=== PATIENT | female | born 1975 | race Caucasian/White ===

== ENCOUNTER 2018-09-26 01:12 | Inpatient (IN) | payer MEDICAID ==
[2018-09-26] VITALS (10 sets, daily range): BP systolic 100–117; BP diastolic 60–74
[~2018-09-26] VITALS: Ht 158.8 cm; Wt 114.3 kg
[~2018-09-26 01:12] MED LIST: BUPR300T53 PO; LANS30CA55 PO
[2018-09-26] MEDS ORDERED: ZOLPIDEM TARTRATE 10 MG TABLET PO PRN (03:00)
[2018-09-26] MEDS ORDERED: HALOPERIDOL 5 MG TABLET PO PRN (03:00)
[2018-09-26] MEDS ORDERED: LORazepam 2 MG TABLET PO PRN (03:00)
[2018-09-26] MEDS ORDERED: SERT100T12 PO (07:21)
[2018-09-26] MEDS ORDERED: DIPH25CA85 PO (07:21)
[2018-09-26] MEDS ORDERED: IBUP-2071 PO (07:21)
[2018-09-26] MEDS ORDERED: ALBU8HFA IH (07:21)
[2018-09-26] MEDS ORDERED: ZOLP10TA7 PO (07:21)
[2018-09-26] MEDS ORDERED: LEVO125T4 PO (07:21)
[2018-09-26] MEDS ORDERED: LURA40 PO (07:21)
[2018-09-26] MEDS ORDERED: ALBUTEROL SULFATE HFA 90 MCG/PUFF 8 GM INHALER IH PRN (08:15)
[2018-09-26] MEDS ORDERED: BACITRACIN 28.4 GM OINTMENT TP PRN (08:15)
[2018-09-26] MEDS ORDERED: IBUPROFEN 600 MG TABLET PO PRN (08:15)
[2018-09-26] MEDS ORDERED: MAG HYDROX/AL HYDROX/SIMETH ES 30 ML SUSPENSION UDCUP PO PRN (08:15)
[2018-09-26] MEDS ORDERED: BENZOCAINE/MENTHOL LOZENGE MM PRN (08:15)
[2018-09-26] MEDS ORDERED: CloNIDine HCL 0.1 MG TABLET PO PRN (08:15)
[2018-09-26] MEDS ORDERED: LOPERAMIDE HCL 2 MG CAPSULE PO PRN (08:15)
[2018-09-26] MEDS ORDERED: MAGNESIUM HYDROXIDE SUSPENSION 30 ML UDCUP PO PRN (08:15)
[2018-09-26] MEDS ORDERED: ACETAMINOPHEN 325 MG TABLET PO PRN (08:15)
[2018-09-26] MEDS ORDERED: ONDANSETRON HCL 4 MG TABLET PO PRN (08:15)
[2018-09-26] MEDS ORDERED: PETROLATUM,WHITE 28 GM JELLY TP PRN (08:15)
[2018-09-26] MEDS ORDERED: OMEPRAZOLE 20 MG CAPSULE PO SCH (09:00)
[2018-09-26] MEDS ORDERED: PNEUMOCOCCAL VACCINE POLYVALENT 0.5 ML VIAL [PPSV23] IM ONE (11:00)
[2018-09-26] MEDS: DOCUSATE SODIUM 100 MG CAPSULE PO SCH (12:38)
[2018-09-26] MEDS: RisperiDONE 1 MG TABLET PO SCH (16:17)
[2018-09-27] MEDS: LEVOTHYROXINE SODIUM 125 MCG TABLET PO SCH (06:57)
[2018-09-27 08:19] VITALS: BP 101/60
[2018-09-27 08:20] VITALS: BP 101/60
[2018-09-27 08:36] LABS: EOSINOPHILS % (AUTO) 2.4 % (1.0-6.0); HEMATOCRIT 40.4 % (36-46); HEMOGLOBIN 13.7 g/dL (12.0-16.0); LYMPHOCYTES # (AUTO) 3.2 K/uL (1.0-4.8); MEAN CORPUSCULAR HEMOGLOBIN 31.2 pg (26.0-34.0); MEAN CORPUSCULAR VOLUME 92 fL (80-100); MONOCYTES # (AUTO) 0.8 K/uL (0.1-1.0); MONOCYTES % (AUTO) 10.9 % (2.0-9.0); NEUTROPHILS # (AUTO) 2.8 K/uL (1.8-7.7); NEUTROPHILS % (AUTO) 39.7 % (40.0-70.0); PLATELET COUNT (AUTO) 281 K/uL (150-450); RED CELL DISTRIBUTION WIDTH 13.5 % (11.5-14.5)
[2018-09-27] MEDS: DOCUSATE SODIUM 100 MG CAPSULE PO SCH (08:45)
[2018-09-27] MEDS: LANSOPRAZOLE 30 MG CAPSULE PO SCH (08:46)
[2018-09-27] MEDS: RisperiDONE 1 MG TABLET PO SCH ×2 (09:24→15:57)
[2018-09-27 16:27] VITALS: BP 115/63
[2018-09-28] MEDS: LEVOTHYROXINE SODIUM 125 MCG TABLET PO SCH (06:20)
[2018-09-28 07:10] VITALS: BP 120/81
[2018-09-28] MEDS: RisperiDONE 1 MG TABLET PO SCH ×2 (08:56→16:04)
[2018-09-28] MEDS: LANSOPRAZOLE 30 MG CAPSULE PO SCH (08:56)
[2018-09-28] MEDS: DOCUSATE SODIUM 100 MG CAPSULE PO SCH (08:56)
[2018-09-28 09:16] VITALS: BP 117/62
[2018-09-28 09:18] VITALS: BP 117/62
[2018-09-28 16:18] VITALS: BP 118/70
[2018-09-29] MEDS: LEVOTHYROXINE SODIUM 125 MCG TABLET PO SCH (06:25)
[2018-09-29] MEDS: RisperiDONE 1 MG TABLET PO SCH ×2 (08:49→16:56)
[2018-09-29] MEDS: DOCUSATE SODIUM 100 MG CAPSULE PO SCH (08:49)
[2018-09-29] MEDS: LANSOPRAZOLE 30 MG CAPSULE PO SCH (08:49)
[2018-09-29 08:51] VITALS: BP 100/62
[2018-09-29 17:24] VITALS: BP 100/60
[2018-09-30] MEDS: LEVOTHYROXINE SODIUM 125 MCG TABLET PO SCH (06:53)
[2018-09-30] MEDS ORDERED: RISP1 PO (07:58)
[2018-09-30] MEDS ORDERED: DSS100 PO (07:58)
[2018-09-30] MEDS: DOCUSATE SODIUM 100 MG CAPSULE PO SCH (09:15)
[2018-09-30] MEDS: LANSOPRAZOLE 30 MG CAPSULE PO SCH (09:15)
[2018-09-30] MEDS: RisperiDONE 1 MG TABLET PO SCH (09:15)
== END 2018-09-30 11:25 | disposition home or self-care (01) | DRG 750 ==
LOC: B2S 02:00
PROVIDERS: ADMIT Psychiatry & Neurology Psychiatry; ATTEND Psychiatry & Neurology Psychiatry
DX: F25.1 Schizoaffective disorder, depressive type (principal); R45.851 Suicidal ideations; J45.909 Unspecified asthma, uncomplicated; K21.9 Gastro-esophageal reflux disease without esophagitis; E03.9 Hypothyroidism, unspecified
CPT/HCPCS: 90686; 90732

== ENCOUNTER 2019-05-10 22:42 | Inpatient (IN) | payer MEDICAID ==
[~2019-05-10] VITALS: Ht 160 cm; Wt 105.2 kg
[~2019-05-10 22:42] MED LIST changes: -BUPR300T53 PO; +DSS100 PO; +LEVO125T4 PO; +RISP1 PO
[2019-05-10] MEDS ORDERED: HALOPERIDOL 5 MG TABLET PO PRN (23:00)
[2019-05-10] MEDS ORDERED: ZOLPIDEM TARTRATE 10 MG TABLET PO PRN (23:00)
[2019-05-11 00:51] LABS: APPEARANCE,URINE CLEAR (CLEAR); BILIRUBIN,URINE NEGATIVE (NEGATIVE); GLUCOSE, URINE (UA) NEGATIVE (NEGATIVE); KETONES,URINE NEGATIVE (NEGATIVE); LEUKOCYTE ESTERASE ,URINE NEGATIVE (NEGATIVE); NITRATE,URINE NEGATIVE (NEGATIVE); OCCULT BLOOD,URINE LARGE (NEGATIVE); PROTEIN,URINE NEGATIVE (NEGATIVE); UROBILINOGEN,URINE 0.2 mg/dL (<=1.0)
[2019-05-11 01:03] LABS: AMPHET/METH SCREEN,URINE POSITIVE (NEGATIVE); BARBITURATE SCREEN, URINE NEGATIVE (NEGATIVE); BENZODIAZEPINES SCREEN,URINE NEGATIVE (NEGATIVE); CANNABINOID SCREEN,URINE NEGATIVE (NEGATIVE); COCAINE SCREEN,URINE NEGATIVE (NEGATIVE); METHADONE SCREEN, URINE NEGATIVE (NEGATIVE); OPIATE SCREEN,URINE NEGATIVE (NEGATIVE)
[2019-05-11 01:04] LABS: BASOPHILS % (AUTO) 1.2 % (0.0-2.0); EOSINOPHILS % (AUTO) 2.6 % (1.0-6.0); HEMATOCRIT 41.5 % (36-46); HEMOGLOBIN 13.6 g/dL (12.0-16.0); LYMPHOCYTES # (AUTO) 3.5 K/uL (1.0-4.8); LYMPHOCYTES % (AUTO) 35.1 % (22.0-44.0); MEAN CORPUSCULAR HEMOGLOBIN 30.6 pg (26.0-34.0); MEAN CORPUSCULAR HGB CONC 32.7 G/dL (31.0-37.0); MEAN CORPUSCULAR VOLUME 94 fL (80-100); MONOCYTES % (AUTO) 10.4 % (2.0-9.0); NEUTROPHILS # (AUTO) 5.1 K/uL (1.8-7.7); NEUTROPHILS % (AUTO) 50.7 % (40.0-70.0); PLATELET COUNT (AUTO) 351 K/uL (150-450); RED BLOOD CELL COUNT(AUTO) 4.44 MIL/uL (4.00-5.20)
[2019-05-11 01:04] LABS: BACTERIA,URINE Rare /HPF (None Seen); SQUAMOUS EPITHELIAL CELL,UR Moderate /LPF (None Seen)
[2019-05-11 01:06] LABS: PHENCYCLIDINE SCREEN,URINE NEGATIVE (NEGATIVE)
[2019-05-11 01:14] LABS: ANION GAP 10 mmol/L (8-16); CALCIUM, TOTAL 8.3 mg/dL (8.8-10.5); CARBON DIOXIDE 24 mmol/L (22-29); CHLORIDE 107 mmol/L (98-107); CREATININE 0.72 mg/dL (0.60-1.30); GLOMERULAR FILTR. RATE CALC > 60 mL/min (>60); GLUCOSE,RANDOM 100 mg/dL (70-110); SODIUM SERUM 141 mmol/L (136-145); UREA NITROGEN, BLOOD 10 mg/dL (7-18)
[2019-05-11 01:25] LABS: ALANINE AMINOTRANSFERASE 20 U/L (12-78); ALBUMIN 3.4 g/dL (3.4-5.0); ALKALINE PHOSPHATASE 62 U/L (46-116); ASPARTATE AMINOTRANSFERASE 12 U/L (15-37); BILIRUBIN,TOTAL 0.2 mg/dL (0.1-1.0); HCG,QUANTITATIVE < 1 mIU/mL (0-6); TOTAL PROTEIN, SERUM 6.6 g/dL (6.4-8.2)
[2019-05-11] MEDS ORDERED: LORazepam 2 MG TABLET PO ONE (01:30)
[2019-05-11] MEDS ORDERED: -PHARMACY VACCINE NOTE- MISC ONE (06:45)
[2019-05-11] MEDS ORDERED: INFLUENZA VIRUS VACCINE QVS 2019-20 (3YR+)/PF 60 MCG/0.5 ML SYRINGE IM ONE (06:45)
[2019-05-11 09:30] VITALS: BP 114/76
[2019-05-11] MEDS ORDERED: OMEPRAZOLE 20 MG CAPSULE PO PRN (14:45)
[2019-05-11] MEDS ORDERED: DOCUSATE SODIUM 100 MG CAPSULE PO PRN (14:45)
[2019-05-11] MEDS ORDERED: ONDANSETRON HCL 4 MG TABLET PO PRN (14:45)
[2019-05-11] MEDS ORDERED: CloNIDine HCL 0.1 MG TABLET PO PRN (14:45)
[2019-05-11] MEDS ORDERED: ALBUTEROL SULFATE HFA 90 MCG/PUFF 8 GM INHALER IH PRN (14:45)
[2019-05-11] MEDS ORDERED: PETROLATUM,WHITE 28 GM JELLY TP PRN (14:45)
[2019-05-11] MEDS ORDERED: BENZOCAINE/MENTHOL LOZENGE MM PRN (14:45)
[2019-05-11] MEDS ORDERED: ACETAMINOPHEN 325 MG TABLET PO PRN (14:45)
[2019-05-11] MEDS ORDERED: MAG HYDROX/AL HYDROX/SIMETH ES 30 ML SUSPENSION UDCUP PO PRN (14:45)
[2019-05-11] MEDS ORDERED: BACITRACIN 28.4 GM OINTMENT TP PRN (14:45)
[2019-05-11] MEDS ORDERED: IBUPROFEN 600 MG TABLET PO PRN (14:45)
[2019-05-11] MEDS ORDERED: MAGNESIUM HYDROXIDE SUSPENSION 30 ML UDCUP PO PRN (14:45)
[2019-05-11] MEDS ORDERED: LOPERAMIDE HCL 2 MG CAPSULE PO PRN (14:45)
[2019-05-11] MEDS: RisperiDONE 1 MG TABLET PO SCH (17:00)
[2019-05-11] MEDS: SERTRALINE HCL 50 MG TABLET PO SCH (20:34)
[2019-05-12] MEDS: LEVOTHYROXINE SODIUM 125 MCG TABLET PO SCH (06:13)
[2019-05-12 08:29] VITALS: BP 109/58
[2019-05-12] MEDS: LORazepam 2 MG TABLET PO PRN (08:33)
[2019-05-12] MEDS: RisperiDONE 1 MG TABLET PO SCH (08:34)
[2019-05-12] MEDS: RisperiDONE 2 MG TABLET PO SCH (16:16)
[2019-05-12 16:21] VITALS: BP 107/61
[2019-05-12] MEDS: SERTRALINE HCL 50 MG TABLET PO SCH (20:39)
[2019-05-13] MEDS: LEVOTHYROXINE SODIUM 125 MCG TABLET PO SCH (06:27)
[2019-05-13] MEDS: RisperiDONE 2 MG TABLET PO SCH ×2 (08:34→16:23)
[2019-05-13] MEDS: LORazepam 2 MG TABLET PO PRN (16:23)
[2019-05-13] MEDS: SERTRALINE HCL 50 MG TABLET PO SCH (20:52)
[2019-05-14] MEDS: LEVOTHYROXINE SODIUM 125 MCG TABLET PO SCH (06:31)
[2019-05-14] MEDS: RisperiDONE 2 MG TABLET PO SCH (08:13)
[2019-05-14] MEDS: LORazepam 2 MG TABLET PO PRN (08:53)
[2019-05-14] MEDS: RisperiDONE 3 MG TABLET PO SCH (16:17)
[2019-05-14] MEDS: SERTRALINE HCL 50 MG TABLET PO SCH (20:14)
[2019-05-15 06:09] VITALS: BP 117/70
[2019-05-15] MEDS: LEVOTHYROXINE SODIUM 125 MCG TABLET PO SCH (06:22)
[2019-05-15] MEDS: RisperiDONE 3 MG TABLET PO SCH ×2 (08:51→16:38)
[2019-05-15] MEDS: LORazepam 2 MG TABLET PO PRN (08:51)
[2019-05-15] MEDS ORDERED: NICOTINE 21 MG/24 HOUR PATCH TD SCH (09:00)
[2019-05-15 16:32] VITALS: BP 114/65
[2019-05-15] MEDS ORDERED: SERT100T12 PO (19:11)
[2019-05-15] MEDS ORDERED: RISP3 PO (19:11)
[2019-05-15] MEDS: SERTRALINE HCL 50 MG TABLET PO SCH (20:24)
[2019-05-16 04:36] VITALS: BP 110/64
[2019-05-16] MEDS: LEVOTHYROXINE SODIUM 125 MCG TABLET PO SCH (06:16)
== END 2019-05-16 07:15 | disposition home or self-care (01) | DRG 750 ==
LOC: EMS 22:43 → B3A 05-11 07:52 → UNDOADMIN 05-11 07:52 → B3A 05-13 16:48
PROVIDERS: ADMIT Psychiatry & Neurology Psychiatry; ATTEND Psychiatry & Neurology Psychiatry
DX: F25.1 Schizoaffective disorder, depressive type (principal); R45.851 Suicidal ideations; F15.20 Other stimulant dependence, uncomplicated; E03.9 Hypothyroidism, unspecified; J45.909 Unspecified asthma, uncomplicated; K21.9 Gastro-esophageal reflux disease without esophagitis; Z28.21 Immunization not carried out because of patient refusal; Z88.5 Allergy status to narcotic agent; F12.90 Cannabis use, unspecified, uncomplicated; F41.9 Anxiety disorder, unspecified; G47.00 Insomnia, unspecified; K59.00 Constipation, unspecified; Z98.84 Bariatric surgery status
CPT/HCPCS: 87491; 87591; G0480

== ENCOUNTER 2019-05-23 14:08 | Inpatient (IN) | payer MEDICAID ==
[~2019-05-23] VITALS: Ht 160 cm; Wt 108.4 kg
[~2019-05-23 14:08] MED LIST changes: -DSS100 PO; -LANS30CA55 PO; -RISP1 PO; +RISP3 PO; +SERT100T12 PO
[2019-05-23 14:18] VITALS: BP 108/62
[2019-05-23] MEDS ORDERED: ZOLPIDEM TARTRATE 10 MG TABLET PO PRN (14:45)
[2019-05-23] MEDS ORDERED: HALOPERIDOL 5 MG TABLET PO PRN (14:45)
[2019-05-23 16:03] VITALS: BP 110/66
[2019-05-23] MEDS: RisperiDONE 3 MG TABLET PO SCH (17:58)
[2019-05-23] MEDS ORDERED: BENZOCAINE/MENTHOL LOZENGE MM PRN (18:30)
[2019-05-23] MEDS ORDERED: OMEPRAZOLE 20 MG CAPSULE PO PRN (18:30)
[2019-05-23] MEDS ORDERED: MAGNESIUM HYDROXIDE SUSPENSION 30 ML UDCUP PO PRN (18:30)
[2019-05-23] MEDS ORDERED: LOPERAMIDE HCL 2 MG CAPSULE PO PRN (18:30)
[2019-05-23] MEDS ORDERED: ACETAMINOPHEN 325 MG TABLET PO PRN (18:30)
[2019-05-23] MEDS ORDERED: BACITRACIN 28.4 GM OINTMENT TP PRN (18:30)
[2019-05-23] MEDS ORDERED: MAG HYDROX/AL HYDROX/SIMETH ES 30 ML SUSPENSION UDCUP PO PRN (18:30)
[2019-05-23] MEDS ORDERED: ALBUTEROL SULFATE HFA 90 MCG/PUFF 8 GM INHALER IH PRN (18:30)
[2019-05-23] MEDS ORDERED: PETROLATUM,WHITE 28 GM JELLY TP PRN (18:30)
[2019-05-23] MEDS ORDERED: CloNIDine HCL 0.1 MG TABLET PO PRN (18:30)
[2019-05-23] MEDS ORDERED: DOCUSATE SODIUM 100 MG CAPSULE PO PRN (18:30)
[2019-05-23] MEDS ORDERED: ONDANSETRON HCL 4 MG TABLET PO PRN (18:30)
[2019-05-23] MEDS: NICOTINE 21 MG/24 HOUR PATCH TD SCH (19:25)
[2019-05-23] MEDS: IBUPROFEN 600 MG TABLET PO PRN (19:26)
[2019-05-24] MEDS: NICOTINE 21 MG/24 HOUR PATCH TD SCH (08:53)
[2019-05-24] MEDS: SERTRALINE HCL 100 MG TABLET PO SCH (08:53)
[2019-05-24] MEDS: RisperiDONE 3 MG TABLET PO SCH ×2 (08:53→16:03)
[2019-05-24] MEDS: LORazepam 2 MG TABLET PO PRN (08:57)
[2019-05-24 16:03] VITALS: BP 121/69
[2019-05-25 07:45] LABS: BASOPHILS % (AUTO) 0.7 % (0.0-2.0); EOSINOPHILS % (AUTO) 2.1 % (1.0-6.0); HEMATOCRIT 41.7 % (36-46); HEMOGLOBIN 14.1 g/dL (12.0-16.0); LYMPHOCYTES # (AUTO) 2.5 K/uL (1.0-4.8); LYMPHOCYTES % (AUTO) 26.9 % (22.0-44.0); MEAN CORPUSCULAR HEMOGLOBIN 31.2 pg (26.0-34.0); MEAN CORPUSCULAR HGB CONC 33.9 G/dL (31.0-37.0); MEAN CORPUSCULAR VOLUME 92 fL (80-100); MONOCYTES # (AUTO) 0.9 K/uL (0.1-1.0); NEUTROPHILS # (AUTO) 5.6 K/uL (1.8-7.7); NEUTROPHILS % (AUTO) 60.3 % (40.0-70.0); PLATELET COUNT (AUTO) 317 K/uL (150-450); RED BLOOD CELL COUNT(AUTO) 4.53 MIL/uL (4.00-5.20)
[2019-05-25 08:07] LABS: ALANINE AMINOTRANSFERASE 21 U/L (12-78); ALKALINE PHOSPHATASE 54 U/L (46-116); ANION GAP 8 mmol/L (8-16); ASPARTATE AMINOTRANSFERASE 9 U/L (15-37); BILIRUBIN,TOTAL 0.4 mg/dL (0.1-1.0); CALCIUM, TOTAL 8.3 mg/dL (8.8-10.5); CARBON DIOXIDE 24 mmol/L (22-29); CHLORIDE 105 mmol/L (98-107); CREATININE 0.72 mg/dL (0.60-1.30); GLOMERULAR FILTR. RATE CALC > 60 mL/min (>60); GLUCOSE,RANDOM 91 mg/dL (70-110); HCG,QUANTITATIVE < 1 mIU/mL (0-6); POTASSIUM 4.1 mmol/L (3.5-5.1); SODIUM SERUM 137 mmol/L (136-145); TOTAL PROTEIN, SERUM 6.4 g/dL (6.4-8.2); UREA NITROGEN, BLOOD 12 mg/dL (7-18)
[2019-05-25 08:21] VITALS: BP 111/65
[2019-05-25] MEDS: SERTRALINE HCL 100 MG TABLET PO SCH (08:32)
[2019-05-25] MEDS: NICOTINE 21 MG/24 HOUR PATCH TD SCH (08:32)
[2019-05-25] MEDS: RisperiDONE 3 MG TABLET PO SCH ×2 (08:32→16:51)
[2019-05-25 16:04] VITALS: BP 106/63
[2019-05-26 04:39] VITALS: BP 109/72
[2019-05-26 08:17] VITALS: BP 110/56
[2019-05-26] MEDS: AMOXICILLIN TRIHYDRATE 500 MG CAPSULE PO SCH ×3 (08:26→16:22)
[2019-05-26] MEDS: RisperiDONE 3 MG TABLET PO SCH ×2 (08:29→16:22)
[2019-05-26] MEDS: SERTRALINE HCL 100 MG TABLET PO SCH (08:29)
[2019-05-26] MEDS: NICOTINE 21 MG/24 HOUR PATCH TD SCH (08:29)
[2019-05-26 09:35] VITALS: BP 127/82
[2019-05-26] MEDS: LORazepam 2 MG TABLET PO PRN (09:36)
[2019-05-26 16:24] VITALS: BP 111/64
[2019-05-27 02:23] VITALS: BP 105/72
[2019-05-27] MEDS: LEVOTHYROXINE SODIUM 125 MCG TABLET PO SCH (06:25)
[2019-05-27 08:03] VITALS: BP 141/76
[2019-05-27] MEDS: NICOTINE 21 MG/24 HOUR PATCH TD SCH (08:11)
[2019-05-27] MEDS: RisperiDONE 3 MG TABLET PO SCH ×2 (08:11→16:20)
[2019-05-27] MEDS: SERTRALINE HCL 100 MG TABLET PO SCH (08:11)
[2019-05-27] MEDS: AMOXICILLIN TRIHYDRATE 500 MG CAPSULE PO SCH ×3 (08:11→16:20)
[2019-05-27] MEDS: IBUPROFEN 600 MG TABLET PO PRN (16:20)
[2019-05-28] MEDS: LEVOTHYROXINE SODIUM 125 MCG TABLET PO SCH (06:32)
[2019-05-28 08:10] VITALS: BP 121/65
[2019-05-28] MEDS: RisperiDONE 3 MG TABLET PO SCH (08:10)
[2019-05-28] MEDS: SERTRALINE HCL 100 MG TABLET PO SCH (08:10)
[2019-05-28] MEDS: AMOXICILLIN TRIHYDRATE 500 MG CAPSULE PO SCH ×2 (08:10→12:27)
[2019-05-28] MEDS: NICOTINE 21 MG/24 HOUR PATCH TD SCH (08:11)
[2019-05-28] MEDS: LORazepam 2 MG TABLET PO PRN (08:11)
[2019-05-28] MEDS ORDERED: AMOX500C2 PO (13:03)
== END 2019-05-28 13:30 | disposition home or self-care (01) | DRG 750 ==
LOC: B3A 14:41
PROVIDERS: ADMIT Psychiatry & Neurology Psychiatry; ATTEND Psychiatry & Neurology Psychiatry
DX: F25.1 Schizoaffective disorder, depressive type (principal); R45.851 Suicidal ideations; F41.9 Anxiety disorder, unspecified; J45.909 Unspecified asthma, uncomplicated; Z72.0 Tobacco use; Z88.5 Allergy status to narcotic agent; F15.90 Other stimulant use, unspecified, uncomplicated; E03.9 Hypothyroidism, unspecified
CPT/HCPCS: 87081

== ENCOUNTER 2021-09-13 05:11 | Emergency (ER) | payer MEDICARE ==
[~2021-09-13] VITALS: Ht 160 cm; Wt 101.0 kg
[~2021-09-13 05:11] MED LIST changes: +AMOX500C2 PO; -RISP3 PO; +RISP3TAB35 PO; +SERT-162 PO; -SERT100T12 PO
[2021-09-13 05:35] VITALS: BP 163/99
[2021-09-13] MEDS ORDERED: IBUPROFEN 600 MG TABLET PO ONE (06:15)
== END 2021-09-13 06:46 | disposition home or self-care (01) ==
LOC: EMS 05:14
DX: T25.211A Burn of second degree of right ankle, initial encounter (principal); E03.9 Hypothyroidism, unspecified; J45.909 Unspecified asthma, uncomplicated; Z79.899 Other long term (current) drug therapy; X08.8XXA Exposure to other specified smoke, fire and flames, initial encounter; Y93.89 Activity, other specified; Y92.89 Other specified places as the place of occurrence of the external cause; Y99.8 Other external cause status
CPT/HCPCS: 99282; Z7502; Z7610

== ENCOUNTER 2024-02-12 20:29 | Emergency (ER) | payer MEDICARE, OTHER ==
[~2024-02-12] VITALS: Ht 165.1 cm; Wt 92.0 kg
[~2024-02-12 20:29] MED LIST changes: -AMOX500C2 PO; +BUSP5TAB20 PO; +RISP125S SQ; +SERT-440 PO
[2024-02-12 20:33] VITALS: BP 144/80; PULSE 110; RESP 16; TEMP 98.4
== END 2024-02-12 22:00 | disposition left against medical advice (07) ==
LOC: EMS 20:29
DX: F41.9 Anxiety disorder, unspecified (principal); Z53.21 Procedure and treatment not carried out due to patient leaving prior to being seen by health care provider

== ENCOUNTER 2024-06-04 19:59 | Emergency (ER) | payer MEDICARE, OTHER ==
[~2024-06-04] VITALS: Ht 157.5 cm; Wt 104.5 kg
[2024-06-04 20:15] VITALS: BP 145/118; PULSE 134; RESP 18; TEMP 98.4; O2SAT 97
== END 2024-06-04 21:00 | disposition left against medical advice (07) ==
LOC: EMS 20:01
DX: F41.9 Anxiety disorder, unspecified (principal); R44.0 Auditory hallucinations; Z53.21 Procedure and treatment not carried out due to patient leaving prior to being seen by health care provider